=== PATIENT | male | born 1995 | race Caucasian/White ===

== ENCOUNTER 2021-12-21 06:49 | Emergency (ER) | payer BC, SELFPAY ==
[2021-12-21 07:14] VITALS: BP 149/100; PULSE 75; RESP 16; TEMP 36.8; O2SAT 96; BMI 29.8
--- NOTE | 2021-12-21 07:20 | XRR_ITS ---
PROCEDURE INFORMATION: Exam: XR Left Femur Exam date and time: 12/21/2021 7:35 AM Age: 26 years old Clinical indication: Pain; Thigh; Left; Additional info: L upper leg pain TECHNIQUE: Imaging protocol: Radiologic exam of the Left femur. Views: 2 views. Total images: 728 COMPARISON: No relevant prior studies available. FINDINGS: Bones/joints: No acute fracture nor subluxation. No osseous erosion nor periosteal reaction. Soft tissues: Soft tissues are unremarkable with normal attenuation seen within the subcutaneous fat. No subcutaneous emphysema is detected. No masses are seen. Vasculature: Incidental phleboliths noted. XR/XR femur LT min 2V* [id number] IMPRESSION: No acute osseous pathology.
[2021-12-21 07:21] VITALS: BP 151/95; PULSE 73; RESP 16; TEMP 36.8; O2SAT 97
--- NOTE | 2021-12-21 07:25 | W.ED.EXTPRO ---
HPI - Extremity Problem General: Chief complaint: Extremity Injury, Lower Stated complaint: left leg pain Time Seen by Provider: 12/21/21 07:16 Source: patient Mode of arrival: ambulatory Limitations: no limitations History of Present Illness: 26-year-old male [employer] presents to the ER today for left hamstring pain x3 days. Patient reports on he was on a mission carrying heavy objects and running. Patient reports he felt a strain in his left hamstring. He reports since then the pain has continued to worsen. Patient reports bruising behind the left knee. He reports pain with any weightbearing and lifting of the left leg. Patient denies any swelling. Patient denies any prior injury to this leg. Patient is taking [id number] meds for pain relief. Review of Systems General: Reports: 10 or more systems reviewed and unremarkable except in HPI and below Physical Exam Const: COMMON NORMALS: no acute distress, average body habitus, patient oriented x3, no limitations, healthy appearing, alert and well nourished Resp: COMMON NORMALS: normal respiratory effort EFFORT & INSPECTION: Yes able to speak in complete sentences Cardio: COMMON NORMALS: regular rate and regular rhythm RATE: regular rate RHYTHM: regular rhythm Back/Pelvis: COMMON NORMALS: thoracic and lumbar spine normal to inspection, no thoracic nor lumbar tenderness and thoraco-lumbar ROM normal Extremity: OTHER: Patient has tenderness with left hip flexion, pain is in the hamstring. Is tender over the left proximal hamstring. Patient has moderate bruising posterior left knee. No swelling is noted. Neuro: COMMON NORMALS: patient oriented x3 SENSORIUM/ORIENTATION: Yes alert Psych: COMMON NORMALS: mental status grossly normal, Normal thought process present and cooperative THOUGHT PROCESS: Normal thought process present Skin: NARRATIVE SKIN EXAM: Patient has bruising posterior left knee Course ED course: 26-year-old male member [employer] presents to the ER today for left hamstring pain x3 days. Patient reports he was doing admission and carrying a heavy object while running and felt a strain in his left hamstring. Patient reports bruising in the posterior left knee. He reports pain with weightbearing and flexion of the left hip since then. We will get an x-ray at this time however I did discuss with patient this is unlikely to show us any type of muscle tear or strain. Vital Signs: Vital signs: Vital Signs Temperature 98.2 F 12/21/21 07:21 Pulse Rate 73 12/21/21 07:21 Respiratory Rate 16 12/21/21 07:21 Blood Pressure 151/95 12/21/21 07:21 Pulse Oximetry 97 12/21/21 07:21 MDM - Extremity (Nontraumatic) Medical Decision Making 26-year-old male member [employer] presents to the ER today for left hamstring pain x3 days. Patient reports he was doing admission and carrying a heavy object while running and felt a strain in his left hamstring. Patient reports bruising in the posterior left knee. He reports pain with weightbearing and flexion of the left hip since then. We will get an x-ray at this time however I did discuss with patient this is unlikely to show us any type of muscle tear or strain. X-ray is unremarkable. Based on physical exam and history likely a hamstring strain. We will do diclofenac for pain. Okay to also take Tylenol as needed. Recommend heat alternate with ice. Follow-up with PCP in 3 to 5 days to discuss further imaging. Return to the ER with new or worsening symptoms. Patient verbalized understanding and was in agreement with the treatment plan. Lab Data Radiology Impressions Femur X-Ray 12/21/21 07:20 IMPRESSION: No acute osseous pathology. Critical Care Time Critical Care Time: Critical Care Time: No Discharge Plan Discharge Patient Disposition: Home Clinical Impression: Left hamstring muscle strain Condition: Stable Prescriptions: New diclofenac potassium 50 mg tablet 50 mg PO BID PRN (Reason: pain) Qty: 20 0RF Discharge Orders: Discharge ED (Routine); Ordered 12/21/21 Ordered By: Anusha Charles Discharge Diet: Usual diet Discharge Activity: Increase activity as tolerated Patient Instructions: Opioid Safety Activity Restrictions/Additional Instructions: Take diclofenac for pain as prescribed. Do not take ibuprofen while taking diclofenac. Okay to alternate Tylenol for pain. Warm heat alternating with ice recommended for pain. Follow-up with PCP in 3 to 5 days to discuss further imaging. Rest recommended. Return to the ER with new or worsening symptoms. Coding Level of Care Code ED [employer] for Lanette Gonsalez Exam Detailed
[2021-12-21 08:29] VITALS: BP 133/76; PULSE 70; RESP 16; O2SAT 96
== END 2021-12-21 08:27 | disposition home or self-care (01) ==
PROVIDERS: Emergency Provider Physician Assistant
DX: S76.312A Strain of muscle, fascia and tendon of the posterior muscle group at thigh level, left thigh, initial encounter (principal); X50.9XXA Other and unspecified overexertion or strenuous movements or postures, initial encounter; Y93.02 Activity, running
CPT/HCPCS: 73552; 99283